=== PATIENT | male | born 1985 | race Caucasian/White ===

== ENCOUNTER 2017-09-17 15:23 | Inpatient (IN) ==
[2017-09-17 15:56] VITALS: BMI 30.2
[2017-09-17] MEDS ORDERED: MORPHINE SULFATE 2mg INJECTION IVP PRN (15:56)
[2017-09-17] MEDS ORDERED: ONDANSETRON 4 MG/2 ML INJECTION IVP PRN (15:56)
[2017-09-17] MEDS: LR 1,000 ML IV SCH ×3 (15:58→17:55)
--- NOTE | 2017-09-17 16:06 | Anesthesia Preoperative Report ---
Anesthesia Preoperative Record - Date and Time Date: 09/17/17 Preoperative Diagnosis: acute appendicitis Proposed Procedure: lap appy NPO Since Date: 09/17/17 NPO Since Time: 08:00 Allergies/Adverse Reactions: Allergies Allergy/AdvReac Type Severity Reaction Status Date / Time No Known Allergies Allergy Verified 09/17/17 15:43 - Vital Signs Vital Signs: Temperature 97.9 F 09/17/17 15:45 Pulse Rate 63 09/17/17 15:45 Respiratory Rate 16 09/17/17 15:45 Blood Pressure 119/63 09/17/17 15:45 Pulse Oximetry 98 09/17/17 15:45 Height and Weight: Height 1.93 m Weight 112.5 kg Body Mass Index 30.2 - Medications Inpatient Medications: Current Medications Ertapenem 1 g/ Sodium Chloride 100 mls @ 200 mls/hr IV PREOP ONE Stop: 09/18/17 16:16 Lactated Ringer's (Lactated Ringers) 1,000 mls @ 30 mls/hr IV .Q24H ALCIRA Last Admin: 09/17/17 15:58 Dose: 30 mls/hr Morphine Sulfate (Morphine Sulfate Inj) 1 - 4 mg IVP Q1H PRN PRN Reason: Pain Ondansetron HCl (Zofran) 4 mg IVP Q6H PRN PRN Reason: Nausea &/or vomiting Home Medications: Home Medications Medication Instructions Recorded Confirmed Type Ibuprofen [Motrin] 1 tab PO Q6H PRN 09/17/17 09/17/17 History - Medical History Respiratory: DENIES: Sleep Apnea - Social History Smoking Status: Never smoker - Pertinent Findings EKG: Sinus Rhythm - Physical Exam Respiratory Exam: Present: lungs clear, bilateral breath sounds equal Cardiovascular Exam: Present: regular rate and rhythm, no murmur - Airway Assessment Mallampati Score: I TMD: 3 Fingerbreadths Neck Extension: good Teeth: other (full lozoya ) - ASA ASA Score: 2, E - Plan Anesthesia: General Inhalation Gases - Discussion Discussion: Discussed risks/options/alternatives of anesthesia and questions answered. Patient consents. Nursing pain assessment noted. Attestation Statement: Prior to the delivery of any anesthetic medication, I examined the patient, developed the plan, obtained the patient's consent and discussed the risk and benefits of the procedure with the patient/guardian. - Additional Information Seen by Anesthesia: Yes
[2017-09-17] MEDS ORDERED: LIDOCAINE 4% Laryng-O-Jet (160mg/4mL) KIT MM ONE (16:13)
[2017-09-17] MEDS ORDERED: KETAMINE 500 MG/10 ML INJECTION ONE (16:13)
[2017-09-17] MEDS ORDERED: PROPOFOL 20 ML ONE ×2 (16:13→19:12)
[2017-09-17] MEDS ORDERED: FentaNYL 250 MCG/5 ML INJECTION ONE ×2 (16:13→19:12)
[2017-09-17] MEDS ORDERED: ROCURONIUM 50 MG/5 ML INJECTION IVP ONE (16:13)
[2017-09-17] MEDS ORDERED: BUPIVACAINE 0.25%/EPI 1:200,000 30ml SDV INFIL ONE (16:58)
[2017-09-17] MEDS ORDERED: INDOCYANINE GREEN 25mg INJECTION ONE (17:41)
[2017-09-17] MEDS ORDERED: METHYLENE BLUE ONE (18:24)
[2017-09-17] MEDS ORDERED: ONDANSETRON 4 MG/2 ML INJECTION ONE (19:12)
--- NOTE | 2017-09-17 19:17 | General Surgery Procedure Note ---
Date of Procedure: 09/17/17 Surgeon: [employer] Engineer: Sriram Varela APRN Postoperative Diagnosis: Acute ruptured appendicits with ileocecal mass affect Procedure: Attempted laparoscopic appendectomy with conversion to open laparotomy and limited right hemicolectomy Estimated Blood Loss: See Anesthesia Record.
[2017-09-17] MEDS ORDERED: INDOCYANINE GREEN 25mg INJECTION IVP ONE (19:42)
[2017-09-17] MEDS: HYDROMORPHONE 2 MG/ML INJECTION IVP PRN ×3 (20:01→22:33)
[2017-09-17] MEDS ORDERED: METOCLOPRAMIDE 10mg/2ml INJECTION IVP PRN (20:27)
[2017-09-17] MEDS ORDERED: LR 1,000 ML IV SCH (20:27)
[2017-09-17] MEDS ORDERED: MORPHINE PCA 30 MG/30 ML SYRINGE IV PRN (20:27)
[2017-09-17] MEDS ORDERED: NS 1,000 ML IV SCH (20:27)
[2017-09-17] MEDS: FentaNYL 100 MCG/2 ML INJECTION IVP PRN ×2 (20:38→21:59)
[2017-09-17] MEDS: KETOROLAC 30 MG/ML INJECTION IVP PRN (20:38)
--- NOTE | 2017-09-17 22:44 | General Surgery Progress Note ---
Subjective Narrative: Nursing called to report the Morphine [employer] and Fentanyl were not adequate for pain control. physical therapy supervisor was able to find several vials of Dilaudid that could be used. Dilaudid helped in PACU. Morphine and Fentanyl DC'd, prn Dilaudid ordered. - Vital Signs Last Vital Signs Temp 97.7 F 09/17/17 20:27 Pulse 67 09/17/17 22:00 Resp 21 09/17/17 22:00 BP 128/77 09/17/17 22:00 Pulse Ox 100 09/17/17 22:00 Hospital Course Summary Disclaimer: The visit summary below is not to be considered part of the above Progress Note.
[2017-09-18] MEDS: HYDROMORPHONE 2 MG/ML INJECTION IVP PRN ×8 (00:32→20:56)
[2017-09-18] MEDS: NS 1,000 ML IV SCH ×3 (01:26→18:22)
[2017-09-18] MEDS: KETOROLAC 30 MG/ML INJECTION IVP PRN ×3 (05:17→18:01)
[2017-09-18] MEDS: PANTOPRAZOLE 40 MG INJECTION IVP SCH (08:14)
[2017-09-18] MEDS: ENOXAPARIN 40 MG/0.4 ML INJECTION SQ SCH (08:14)
--- NOTE | 2017-09-18 08:46 | Operative Note ---
DATE OF SERVICE 09/17/2017 SURGEON Royer Kenny MD HEAD BAKER Sriram Varela APRN PREOPERATIVE DIAGNOSIS Abnormal CT scan revealing evidence for acute appendicitis with possible microperforation, severe right lower quadrant abdominal pain, probable appendicitis. POSTOPERATIVE DIAGNOSIS Abnormal CT scan revealing evidence for acute appendicitis with possible microperforation, severe right lower quadrant abdominal pain, probable appendicitis; phlegmonous mass involving cecum. PROCEDURE Attempted laparoscopic appendectomy with conversion to open laparotomy and a limited right hemicolectomy. ANESTHESIA General endotracheal. EBL AND FLUIDS Please see chart. BRIEF HISTORY/INDICATIONS Mr. Cabral is a 32-year-old gentleman who has somewhat of a unique history of a one to two month history of abdominal pain. The patient had recently been developing increasing pain and was seen earlier today by his primary care physician who obtained a CT scan for further evaluation. Upon CT scan findings were indicative of that of acute appendicitis with possible microperforation and severe surrounding inflammation. No abscess cavity was noted. Upon physical examination the patient was found to be exquisitely tender within the right lower quadrant. He did have a positive Rovsing's sign. I did contemplate proceeding with surgical intervention versus admitting the patient for intravenous antibiotics. I did come to the conclusion that secondary to his significant abdominal pain noted upon physical examination in conjunction with a CT scan revealing evidence for severe inflammation and possible microperforation that we would proceed with surgical intervention. For completeness please refer to notes included in the patient's chart. FINDINGS Upon laparoscopy, unfortunately, the patient was found to have a significant phlegmonous process involving the pericecal region. The appendix appeared to be retrocecal in nature. The appendix itself was difficult to even visualize given the significant inflammatory changes that were present. The white line of Toldt was incised along the right pericolic gutter and the colon was able to be reflected medially. Once this was accomplished, one could begin to see the tip of the appendix and a portion of the distal appendix. The proximal portion of the appendix, however, was not able to be visualized within this phlegmonous process. I could not mobilize the cecum to any greater extent laparoscopically and I elected therefore to proceed with conversion to open procedure. Upon laparotomy, liver edge was smooth without nodularities. Gallbladder was without palpable stones. Small bowel was run from the ligament of Treitz to terminal ileum without noted abnormalities. The colon was palpated throughout and was within normal limits with the exception of this phlegmonous process involving the cecum. The patient was found to have a hard discrete firm mass that was about 6 cm in greatest dimension. Given this finding, I elected to proceed with a limited right hemicolectomy and the terminal ileum was divided just proximal to the ileocecal valve. Mid ascending colon was also divided. A [id number] anastomosis was completed without incident between the terminal ileum and mid ascending colon. DESCRIPTION OF PROCEDURE After informed consent was obtained the patient was brought to the operative suite and placed on the table in supine fashion. The abdomen was then prepped and draped in sterile fashion. A formal time-out was then completed. 0.25% Marcaine with epinephrine was injected just beneath the level of the umbilicus. A 2 cm curved incision was then made through the area of analgesia. Dissection was carried down the deep subcutaneous tissues to underlying fascia. Fascia was then grasped with two Melonie clamps, retracted anteriorly. A 1 cm incision was made between the two Melonie clamps. A hemostat was then introduced into the fascial incision and gently spread. A U stitch was then placed with 0 Vicryl. A 12-mm camera port was then placed into the peritoneal cavity through this fascial opening. Additional 5 mm port was then placed in the suprapubic region as well as an additional 10/12 mm port within the right upper quadrant. Each port site was preinjected with 0.25% Marcaine with epinephrine and placed under direct visualization. The patient was placed in Trendelenburg position and rotated towards his left. Attention was then focused to the right lower quadrant. Upon visualization one could see a marked inflammatory mass involving the pericecal region. Upon palpation, utilizing a laparoscopic grasper, one could ascertain that there was a hard discrete mass involving the cecal region. As discussed above, the appendix was not able to be visualized. White line of Toldt was then incised along the right pericolic gutter and the colon was then began to be reflected medially. One could then see, with careful blunt dissection utilizing the suction tip catheter, the tip of the appendix within the retrocecal location. Attempt was made at dissecting the appendix away from the cecum and identifying the base of the appendix. This was to no avail given the marked inflammatory changes that were present. Therefore elected to proceed with conversion to an open procedure. Ports were removed and pneumoperitoneum was released. A standard midline incision was then made from just above the pubic symphysis up to and above the level of the umbilicus. Underlying subcutaneous tissues, fascia and peritoneum was opened to the extent of the incision. The abdominal cavity was explored with findings as noted above. Next, attention was then focused to the colon. White line of Toldt was then continued to be incised in a cephalad fashion up towards the hepatic flexure. Duodenum was identified as the colon was being reflected medially and the duodenum was gently swept posteriorly as the hepatic flexure was being mobilized. Hepatic flexure was then divided and the hepatic flexure was rotated medially and caudally. A few of the gastrocolic ligaments were divided just beyond the hepatic flexure resulting in complete mobilization of the hepatic flexure. At this point in time the right colon could be brought forth up into the incision and more carefully inspected. One could again see the tip of the appendix. I was unable to identify the base of the appendix as a result of this large phlegmonous process which was about 6-7 cm in diameter. Upon palpation the mass itself appeared to be involving the posterior aspect of the cecum and not intraluminal in nature as one would expect with a colonic malignancy. Given this phlegmonous process, I elected to go ahead and proceed with a limited right hemicolectomy. The mesentery was sequentially divided involving the terminal ileum as well as the proximal ascending colon. About 8 cm of mesentery was resected in continuity with the specimen. I did not, however, divide the right colic vessels at their origin. I did not dissect into the retroperitoneal space as a result of the inflammatory changes that were present. One could see the ureter beneath the peritoneum along the right lateral pelvic wall. Upon palpation, one could feel the ureter. The ureter was medial to the prior areas of dissection and out of the surgical field. The mesentery was divided as discussed above between right angle clamps and ligated with a combination of 3-0 and 0 Vicryl ties. Next, antimesenteric portion of the terminal ileum about 6 cm proximal to the ileocecal valve was then aligned along the midportion of the ascending colon proximal and distal to this phlegmonous process by placing a single interrupted suture of 3-0 Vicryl. The patient was then given ICG intravenously. Using fluorescence, I did assess the vascular status. Terminal ileum did fluoresce up to and beyond where the single interrupted suture was placed. The cecum where the mesentery had been divided did not fluoresce. Mid ascending colon at the location of the proposed anastomosis also fluoresced quite well indicative of adequate blood supply. Next, enterotomy and colotomy was then performed adjacent to the single interrupted suture. YOSEF 75 stapler was then placed within the enterotomy and colotomy and aligned along the antimesenteric border and fired. Next YOSEF 75 stapler was then reloaded and placed transversely excluding the prior enterotomy and colotomy and fired. The anastomosis was performed at the site where the vascular supply was found to be completely intact as discussed above. A few Lembert sutures were placed at the apex of the transverse staple line resulting in inversion of the distal staple line. A single interrupted suture was then placed at the apex of the staple line along the antimesenteric borders. Palpation revealed the anastomosis to be widely patent. I then had my digital assistant grasp the ascending colon distal to anastomosis. I then advanced small bowel contents into the anastomosis until the anastomosis was fairly taut with succus entericus material. One could not see any evidence of extravasation of small bowel contents through the staple line indicative that the staple line was completely intact. Next, prior areas of dissection were inspected and found be hemostatic in nature. Attention was then directed towards closure. Instrument, sponge and needle counts were performed and found to be correct. Fascia was then began to be closed with #1 PDS. The circulating nurse then stated that upon additional count that she was missing a lap pad. I then reopened the fascial closure a portion and after several minutes the circulating nurse then stated that she had found the additional missing lap pad and several lap counts and needle counts were performed once again and found to be correct. Attention was then directed back towards closure. The fascia was then continued be closed a running fashion with #1 PDS suture. New gowns, gloves and instruments were then obtained and attention was then directed towards closure. Subcutaneous tissues were irrigated with Betadine solution. Skin incisions were then imbricated with gera. The patient is in the process of awakening from his anesthetic and will be sent to the ICU once deemed in stable condition. Additionally, it should be noted that Sriram Varela APRN, was present throughout the entire case and played a pivotal role in providing assistance and exposure during the course of the procedure. MALINI
--- NOTE | 2017-09-18 10:32 | Progress Note ---
DATE 09/18/2017 FINDINGS Eliseo was seen this morning on rounds. He looked quite well considering he had a right hemicolectomy last evening. He was sitting up in the chair at the bedside and brushing his teeth. He did have a component of some incisional discomfort. Otherwise was without complaints. VITALS: Afebrile. Normotensive. Please refer to EMR. CHEST: Clear to auscultation bilaterally. HEART: Regular rate and rhythm. Normal S1 and S2 without gallops, murmurs or clicks. ABDOMEN: Palpation of the abdomen revealed it to be soft with, surprisingly, only minimal incisional tenderness present. No evidence for guarding or rebound. LABORATORY/RADIOGRAPH EVALUATION The patient had a CBC today and his white count was 17,000, most likely as a result of stress from surgery. Hemoglobin stable at 13.4. BMP obtained and found to be without marked abnormalities. ASSESSMENT 32-year-old gentleman status post attempted laparoscopic appendectomy with conversion to open procedure and subsequent limited right hemicolectomy secondary to phlegmonous mass involving pericecal region. Patient doing quite well. PLAN Will make some afternoon rounds and likely transfer patient out to floor later today. I'm quite pleased with the patient's appearance on postop day #1. MALINI
[2017-09-18] MEDS: ERTAPENEM 1 G in NS 100 ML IV SCH (10:44)
--- NOTE | 2017-09-18 12:40 | General Surgery Progress Note ---
Subjective Narrative: Better pain control with Dilaudid. Hope to transition to PO at some point. - Vital Signs Last Vital Signs Temp 97.9 F 09/18/17 04:00 Pulse 56 L 09/18/17 07:00 Resp 16 09/18/17 11:35 BP 102/62 09/18/17 07:00 Pulse Ox 98 09/18/17 11:35 - Laboratory Result Diagrams: 09/18/17 04:04 09/18/17 04:04 - Normal Exam General: awake, alert, oriented Respiratory: no labored breathing Assessment and Plan (1) Acute appendicitis with rupture Current Visit: Yes Status: Acute Plan: Continue ABX. IV pain control. Hospital Course Summary Disclaimer: The visit summary below is not to be considered part of the above Progress Note.
[2017-09-18] MEDS ORDERED: ERTAPENEM 1 G in NS 100 ML IV ONE (15:47)
[2017-09-18] MEDS: HYDROCODONE/APAP 5mg/325mg TABLET PO PRN (17:50)
[2017-09-19] MEDS: HYDROMORPHONE 2 MG/ML INJECTION IVP PRN ×6 (00:06→15:08)
[2017-09-19] MEDS: NS 1,000 ML IV SCH ×3 (02:53→20:28)
[2017-09-19] MEDS: PANTOPRAZOLE 40 MG INJECTION IVP SCH (08:40)
[2017-09-19] MEDS: ERTAPENEM 1 G in NS 100 ML IV SCH (08:40)
[2017-09-19] MEDS: ENOXAPARIN 40 MG/0.4 ML INJECTION SQ SCH (08:53)
[2017-09-19] MEDS ORDERED: MAG-AL + SIM ORAL LIQUID 30ml PO PRN (11:01)
--- NOTE | 2017-09-19 11:07 | General Surgery Progress Note ---
Subjective Patient reports: still having pain (asking for Dilaudid every 3-4 hours, states morphine and fentanyl are not helpful. Also using Toradol.), no flatus, no bowel movement Narrative: States broth causes epigastric pain, denies actual nausea. - Vital Signs Last Vital Signs Temp 97.5 F 09/19/17 07:49 Pulse 80 09/19/17 07:49 Resp 16 09/19/17 07:49 BP 117/65 09/19/17 07:49 Pulse Ox 95 09/19/17 07:49 - Laboratory Result Diagrams: 09/19/17 03:52 09/19/17 03:52 - Pathology Pending - Abnormal Exam Abdominal: hypoactive bowel sounds, firm - Normal Exam General: awake, alert, oriented Cardiovascular: regular rhythm, regular rate Respiratory: clear bilaterally, no labored breathing Abdominal: incision(s) (gera present, dressing not removed today) Male: other (Juares, clear yellow urine, output good) Psychiatric: normal affect Assessment and Plan (1) Status post right colon removal Current Visit: Yes Status: Acute Problem details: limited right hemicolectomy (2) Acute appendicitis with rupture Current Visit: Yes Status: Acute Plan: POD #2 Pain is improving just a little, Dilaudid seems to be the only thing that helps at this point. Will order Abd Binder. Urine output great, DC Juares. Clears cause epigastric pain, will order fulls and Maalox (already on Protonix IV), better consistency may help. Continue Invanz for ruptured walled off acute appendicitis with cecal mass like effect. Hospital Course Summary Disclaimer: The visit summary below is not to be considered part of the above Progress Note.
--- NOTE | 2017-09-19 17:56 | Progress Note ---
DATE OF SERVICE 09/19/2017 FINDINGS Mr. Cabral was seen on evening rounds. He states that he is doing fairly well with the exception of trying to eat. The patient states that after he eats his "belly knots up." The patient does complain of a moderate amount of discomfort after eating. He denies specifically, however, nausea or vomiting. He does state that his abdomen feels somewhat bloated upon questioning. PHYSICAL EXAM Afebrile, normotensive. Please refer to EMR. ABDOMEN: Soft, minimal incisional tenderness present. No evidence for guarding or rebound. LABORATORY/RADIOGRAPHIC EVALUATION The patient had a CBC today and his white count is down to 7.4. Hemoglobin is stable at 11.5. BMP obtained and found to be without marked abnormalities. ASSESSMENT 32-year-old gentleman status post exploratory laparotomy with resection of phlegmonous mass involving pericecal region. Patient overall doing well. PLAN Will continue with current care. Will keep on full liquids given his ongoing abdominal pain with eating and abdominal bloating. Will try to use some Reglan to see if this would result in any improvement. Will continue to follow the patient closely. MALINI
[2017-09-19] MEDS: KETOROLAC 30 MG/ML INJECTION IVP PRN (20:41)
[2017-09-20] MEDS: NS 1,000 ML IV SCH ×4 (01:46→23:15)
[2017-09-20] MEDS: KETOROLAC 30 MG/ML INJECTION IVP PRN (06:00)
[2017-09-20] MEDS: ERTAPENEM 1 G in NS 100 ML IV SCH (08:40)
[2017-09-20] MEDS: PANTOPRAZOLE 40 MG INJECTION IVP SCH (08:40)
[2017-09-20] MEDS: ENOXAPARIN 40 MG/0.4 ML INJECTION SQ SCH (08:40)
--- NOTE | 2017-09-20 14:16 | Progress Note ---
DATE 09/20/2017 FINDINGS Mr. Cabral today was without complaints. He states he still is experiencing some discomfort after eating. This is improved. He states he did have several bowel movements today. OBJECTIVE VITALS: Afebrile. Normotensive. Please refer to EMR. ABDOMEN: Soft, nontender. Incision is clean, dry and intact. LABORATORY/RADIOGRAPHIC EVALUATION Patient had a CBC today that was unremarkable. Hemoglobin 11.5. White count stable at 85.1. BMP obtained and found to be without marked abnormalities. ASSESSMENT 32-year-old gentleman status post right hemicolectomy secondary to phlegmonous mass involving pericecal region. Pathology still pending. Patient doing well and progressing. PLAN Will go ahead and advance to regular diet. Will decrease his IV fluids. The patient will likely be able to be discharged tomorrow if he continues on this current course. MALINI
[2017-09-20] MEDS: HYDROCODONE/APAP 5mg/325mg TABLET PO PRN ×3 (14:20→23:15)
[2017-09-20 23:20] VITALS: O2SAT 96
[2017-09-21] MEDS: HYDROCODONE/APAP 5mg/325mg TABLET PO PRN (07:12)
[2017-09-21 07:47] VITALS: BP 134/76; PULSE 71; RESP 16; TEMP 98.1
[2017-09-21] MEDS: ENOXAPARIN 40 MG/0.4 ML INJECTION SQ SCH (08:10)
[2017-09-21] MEDS: NS 1,000 ML IV SCH ×2 (08:12→10:35)
[2017-09-21] MEDS: PANTOPRAZOLE 40 MG INJECTION IVP SCH (08:12)
[2017-09-21] MEDS: ERTAPENEM 1 G in NS 100 ML IV SCH (09:19)
--- NOTE | 2017-09-21 10:55 | Progress Note ---
DATE OF SERVICE 09/21/2017 FINDINGS The patient was seen this morning on rounds. He states that he is eating better. He did have some abdominal cramping last evening after eating but today states that he is doing better. EXAM VITAL SIGNS: Afebrile, normotensive. ABDOMEN: Soft, nontender. Incision is clean, dry, and intact. ASSESSMENT 32-year-old gentleman status post limited right hemicolectomy secondary to phlegmonous mass involving pericecal region secondary to appendicitis. Patient doing well. PLAN Discharge to home. Please refer to discharge instructions if detail needed. [id number]
--- NOTE | 2017-09-23 07:44 | Discharge Summary ---
Discharge Information Date of admission: 09/17/17 20:27 Attending Physician: Royer Kenny MD Primary care physician: Paul Clayton MD - Discharge Diagnosis (1) Status post right colon removal Status: Acute (2) Acute appendicitis with rupture Status: Acute - Procedures Procedures: DATE OF SERVICE 09/17/2017 SURGEON Royer Kenny MD CRIMINAL JUDGE Sriram Varela APRN PREOPERATIVE DIAGNOSIS Abnormal CT scan revealing evidence for acute appendicitis with possible microperforation, severe right lower quadrant abdominal pain, probable appendicitis. POSTOPERATIVE DIAGNOSIS Abnormal CT scan revealing evidence for acute appendicitis with possible microperforation, severe right lower quadrant abdominal pain, probable appendicitis; phlegmonous mass involving cecum. PROCEDURE Attempted laparoscopic appendectomy with conversion to open laparotomy and a limited right hemicolectomy. - Laboratory Labs: 09/21/17 04:07 09/21/17 04:07 - Radiology Radiology: CT abd/pelvis, acute appendicitis - Pathology terminal ileum and partial right colon: Acute ruptured appendicitis, 7 benign lymph nodes, no malignancy - History of Present Illness HPI: BRIEF HISTORY/INDICATIONS Mr. Cabral is a 32-year-old gentleman who has somewhat of a unique history of a one to two month history of abdominal pain. The patient had recently been developing increasing pain and was seen earlier today by his primary care physician who obtained a CT scan for further evaluation. Upon CT scan findings were indicative of that of acute appendicitis with possible microperforation and severe surrounding inflammation. No abscess cavity was noted. Upon physical examination the patient was found to be exquisitely tender within the right lower quadrant. He did have a positive Rovsing's sign. I did contemplate proceeding with surgical intervention versus admitting the patient for intravenous antibiotics. I did come to the conclusion that secondary to his significant abdominal pain noted upon physical examination in conjunction with a CT scan revealing evidence for severe inflammation and possible microperforation that we would proceed with surgical intervention. Hospital Course This is a general summary of the patient's hospital course. For more details refer to the complete medical record. Hospital course: 09/17 Admitted for lap appy, which was converted to open limited right hemicolectomy, see operative note for details. Transferred to CCU post op. 09/18 Pain not controlled with Morphine, switched to Dilaudid. VSS, transferred to surgical floor. 09/19 POD #2 Pain is improving just a little, Dilaudid seems to be the only thing that helps at this point. Will order Abd Binder. Urine output great, DC Juares. Clears cause epigastric pain, will order fulls and Maalox (already on Protonix IV), better consistency may help. Continue Invanz for ruptured walled off acute appendicitis with cecal mass like effect. 09/20 PLAN Will go ahead and advance to regular diet. Will decrease his IV fluids. The patient will likely be able to be discharged tomorrow if he continues on this current course. 09/21 PLAN Discharge to home. Resuscitation Status: Full Code Discharge Plan - Med Rec/Dispo Referrals/Follow Up: Royer Kenny MD [Physician] - 10/04/17 1:45 pm [place] Instructions: Colectomy (DC), Open Appendectomy (DC) Prescriptions: New Hydrocodone/APAP 5/325 [[place] 5/325] 1 - 2 tab PO Q5H PRN #30 tab PRN Reason: Pain Ondansetron [Zofran Odt] 1 tab SL Q6HR PRN #10 tab PRN Reason: Nausea Amoxicillin/Potassium Clav [Augmentin 875-125 Tablet] 1 each PO BID #10 tab Continue Ibuprofen [Motrin] 1 tab PO Q6H PRN PRN Reason: Pain No Action Magnesium Citrate 296 ml PO PRN PRN PRN Reason: Constipation - Disposition 01 Discharged Home, Self-Care - Dismissal Complete Discharge Instructions are:: Complete
== END 2017-09-21 10:50 | disposition home or self-care (01) | DRG 331 ==
LOC: SUR 15:23 → NMC.PERIOP 15:25 → CCU 20:22 → SRG 09-18 18:54
PROVIDERS: ADMIT Surgery; ATTEND Surgery

== ENCOUNTER 2017-09-22 18:13 | Inpatient (IN) ==
[2017-09-22] MEDS ORDERED: SALINE FLUSH 10ml SYRINGE IVF PRN (18:15)
[2017-09-22] MEDS ORDERED: KETOROLAC 30 MG/ML INJECTION IVP ONE (18:17)
[2017-09-22] MEDS ORDERED: PROCHLORPERAZINE 10 MG/2 ML INJECTION IVP ONE (18:17)
[2017-09-22] MEDS ORDERED: FentaNYL 100 MCG/2 ML INJECTION IVP ONE (18:17)
[2017-09-22] MEDS ORDERED: NS 1,000 ML IV ONE (18:19)
--- NOTE | 2017-09-22 18:24 | Emergency Department Report ---
Abdominal Pain HPI - General Chief Complaint: Abdominal Pain Stated Complaint: constipation Time Seen by Provider: 09/22/17 18:14 Source: patient Mode of arrival: ambulatory Limitations: no limitations - History of Present Illness HPI narrative: Patient presents in with worsening abdominal pain, still having the inability to have bowel movements despite multiple therapy interventions today. Currently the patient's pain is global, focused most in the epigastrium and left upper quadrant. Patient has already been seen twice today in the ER, and has not actually left the hospital facility, because he feels like he has not had adequate pain control, nor has he been able to achieve bowel movement. In review of the patient's hospital record, it was noted that the patient required high doses and frequent dosing of narcotic pain medication after surgery. Patient states that he has a high pain tolerance, however after surgery the patient seems to be having significant difficulty controlling his pain. 3 days ago the patient had a very complex appendectomy with partial colectomy and removal of the colon mass, noncancerous. Since that time the patient has had no bowel movements, and has had increasingly worsening abdominal pain. Patient has a prescription for [place] at home, that does not seem to be helping with the pain. He was seen twice earlier today, given doses of morphine and Zofran, with little relief. Patient has also tried Dulcolax suppositories, magnesium citrate which she vomited immediately after taking, and 2 fleets enemas with very little relief. X-rays done today showed essentially stool filled colon with no other abnormalities. - Related Data Home Medications Medication Instructions Recorded Confirmed Ibuprofen [Motrin] 1 tab PO Q6H PRN 09/17/17 09/22/17 Magnesium Citrate 296 ml PO PRN PRN 09/22/17 09/22/17 Previous Rx's Medication Instructions Recorded Amoxicillin/Potassium Clav 1 each PO BID #10 tab 09/20/17 [Augmentin 875-125 Tablet] Hydrocodone/APAP 5/325 [[place] 1 - 2 tab PO Q5H PRN #30 tab 09/20/17 5/325] Ondansetron [Zofran Odt] 1 tab SL Q6HR PRN #10 tab 09/20/17 Allergies Allergy/AdvReac Type Severity Reaction Status Date / Time No Known Allergies Allergy Verified 09/17/17 15:43 Review of Systems All systems: reviewed and negative except as stated PFSH Patient Stated Medical History Sleep Apnea No Clinic Medical History (Last Updated 09/17/17 @ 11:47 by Nory Varela APRN) No chronic problems (Acute Medical) Family History: Family History (Last Updated 09/17/17 @ 11:48 by Nory Varela APRN) Mother Rheumatoid arthritis Father Healthy adult Appendectomy, noncancerous colonic mass removal, partial colectomy - Social History Smoking status: Never smoker Physical Exam - Limitations Limitations: no limitations - General General appearance: alert, in distress (patient appears in moderate pain, is unable to find a position of comfort.First to stand) - Normal Exams: Head:: Normocephalic without trauma Eyes:: Pupils are PERRLA w/ EOMI, No scleral icterus, irritation, or foreign bodies noted ENMT:: No facial trauma, nasal exudates, pharyngeal erythema, or exudates are noted Neck:: Full range of motion, without adenopathy, JVD, bruits or thyromegaly Chest/Respirations:: Clear all bradshaw, with good airflow, and symmetry bilaterally Cardiovascular:: Regular rate and rhythm, without murmur or gallop, Pulses 2+ all extremities, capillary refill, <2 seconds all extremities Lymphatic:: No lymphadenopathy, or lymphedema noted Musculoskeletal:: No tenderness, or deformity noted, good range of motion, all extremities Integumentary:: No rashes, hives, or bruising noted, hair and nails, without abnormality Neurological:: Patient is alert, and oriented, cranial nerves, motor/sensory/ cerebellar, exams w/o gross deficits, to observation Psychiatric:: Patient exhibits, appropriate attention, emotion and affect - Abdominal Exam Abdominal exam: Present: soft, tenderness (patient has significant tenderness in the epigastrium, periumbilical region, and both sides of the abdomen. Palpation produces significant increased pain, and patient seems to guard the entire abdomen.), guarding, rebound, diminished bowel sounds. Absent: distention, rigidity, trauma, psoas sign, obturator sign, Sanchez's sign, Rovsing 's sign, tenderness at McBurney's Point, mass, bruit, pulsatile mass, hernia Abdominal Pain - MDM Narrative Medical decision making narrative: Patient did receive significant improvement after Dilaudid, but due to significant hospital shortages this is not an option for further pain management at this time. Patient is given Toradol 30 mg, fentanyl 100 g, and Compazine 10 mg IV - with complete control of the patient's symptoms CBC and CMP/L done earlier were normal CT abdomen pelvis with contrast - status post appendectomy without significant or drainable abscess. Scan did show multiple dilated fluid-filled thick walled small bowel loops in association with mesenteric ischemia suggestive of nonspecific enteritis with extensive ileus. No definite obstruction is seen at this time. Case is discussed with Dr. Kenny, we will admit observation for IV fluids, bowel rest, and medications as outlined above. Disposition Clinical Impression: Postoperative ileus Abdominal pain Qualifiers: Abdominal location: periumbilical Qualified Code(s): R10.33 - Periumbilical pain Disposition: 02 To [facility] Condition: Improved Prescriptions: No Action Hydrocodone/APAP 5/325 [[place] 5/325] 1 - 2 tab PO Q5H PRN #30 tab PRN Reason: Pain Ondansetron [Zofran Odt] 1 tab SL Q6HR PRN #10 tab PRN Reason: Nausea Magnesium Citrate 296 ml PO PRN PRN PRN Reason: Constipation Ibuprofen [Motrin] 1 tab PO Q6H PRN PRN Reason: Pain Amoxicillin/Potassium Clav [Augmentin 875-125 Tablet] 1 each PO BID #10 tab Referrals: Paul Clayton MD [Family Provider] - - Seen By: physician
[2017-09-22] MEDS ORDERED: SALINE FLUSH 10ml SYRINGE ONE (18:33)
[2017-09-22] MEDS ORDERED: IOHEXOL 300mg/ml 75ml INJECTION ONE (18:33)
[2017-09-22] MEDS: NS 1,000 ML IV SCH (20:26)
[2017-09-22] MEDS: KETOROLAC 30 MG/ML INJECTION IVP SCH (23:38)
[2017-09-22] MEDS: PROCHLORPERAZINE 10 MG/2 ML INJECTION IVP SCH (23:39)
[2017-09-23] MEDS: KETOROLAC 30 MG/ML INJECTION IVP SCH ×2 (03:13→08:55)
[2017-09-23] MEDS: FentaNYL 100 MCG/2 ML INJECTION IVP PRN ×2 (03:47→07:33)
[2017-09-23] MEDS: NS 1,000 ML IV SCH ×5 (04:50→22:24)
[2017-09-23] MEDS: PROCHLORPERAZINE 10 MG/2 ML INJECTION IVP SCH (05:15)
--- NOTE | 2017-09-23 08:23 | General Surg History&Physical ---
- History of Present Illness Chief complaint: Abd pain PFSH Patient Stated Medical History Denies chronic health problems Surgical History: Limited right hemicolected for walled off ruptured appendix Family History: Family History (Last Updated 09/17/17 @ 11:48 by Nory Varela, DORCAS) Mother Rheumatoid arthritis Father Healthy adult - Social History Smoking status: Never smoker Substance use type: does not use Housing: house Household members: spouse Medications Home Medications Medication Instructions Recorded Confirmed Type Ibuprofen [Motrin] 1 tab PO Q6H PRN 09/17/17 09/22/17 History Amoxicillin/Potassium Clav 1 each PO BID #10 tab 09/20/17 09/22/17 Rx [Augmentin 875-125 Tablet] Hydrocodone/APAP 5/325 [[place] 1 - 2 tab PO Q5H PRN #30 tab 09/20/17 09/22/17 Rx 5/325] Ondansetron [Zofran Odt] 1 tab SL Q6HR PRN #10 tab 09/20/17 09/22/17 Rx Magnesium Citrate 296 ml PO PRN PRN 09/22/17 09/22/17 History Allergies Allergy/AdvReac Type Severity Reaction Status Date / Time No Known Allergies Allergy Verified 09/17/17 15:43 Review of Systems 10-point ROS: negative except for HPI - Vital Signs Last Vital Signs Temp 96.0 F L 09/23/17 07:00 Pulse 84 09/23/17 07:00 Resp 16 09/23/17 07:00 BP 143/90 H 09/23/17 07:00 Pulse Ox 95 09/23/17 07:00 Hospital Course Summary Disclaimer: The visit summary below is not to be considered part of the above Progress Note.
--- NOTE | 2017-09-23 08:26 | General Surgery Progress Note ---
Subjective Patient reports: voiding w/o difficulty (although states smaller amounts.), no flatus, no bowel movement Narrative: States he feels bloated, denies actual nausea. [place] like he might have a BM earlier, but by the time he got to the bathroom "the urge had pased." Denies chest pain, SOA. - Vital Signs Last Vital Signs Temp 96.0 F L 09/23/17 07:00 Pulse 84 09/23/17 07:00 Resp 16 09/23/17 07:00 BP 143/90 H 09/23/17 07:00 Pulse Ox 95 09/23/17 07:00 - Abnormal Exam Abdominal: hypoactive bowel sounds (almost abscent), distended - Normal Exam General: awake, alert, oriented, no acute distress Cardiovascular: regular rate Respiratory: clear bilaterally, no labored breathing Abdominal: appropriately tender (midline), non-tender (lateral palpation), incision(s) (midline gera in tact, no erythema) Psychiatric: normal affect Assessment and Plan (1) Postoperative ileus Current Visit: Yes Status: Acute (2) Status post right colon removal Current Visit: No Status: Acute Problem details: limited right hemicolectomy Plan: X-ray and labs ordered, will await those results. encouraged ambulation, will keep NPO for now. Hospital Course Summary Disclaimer: The visit summary below is not to be considered part of the above Progress Note.
--- NOTE | 2017-09-23 08:39 | CT Scan Report ---
EXAM: CT abdomen pelvis w con DATE: 09/22/2017 12:00 AM ENCOUNTER: Initial INDICATION: left abd pain post appy/partial colectomy approximately four days prior COMPARISON: 09/17/2017 TECHNIQUE: CT of the abdomen and pelvis with IV contrast. The patient received 70.2 mL of Omnipaque 300 without complication. Coronal and sagittal reformatted images were performed. The current CT scan was performed using radiation dose-reduction techniques. FINDINGS: Lower Chest: The visualized portions of the lower lungs demonstrate mild dependent atelectasis. The heart is normal in size without pericardial effusion. Abdomen: Scattered foci of intraperitoneal free air and mild free fluid within the right abdomen. No focal rim-enhancing fluid collections. No lymphadenopathy. Liver: The liver enhances homogeneously without focal masses. Gallbladder and biliary: The gallbladder appears normal. No biliary ductal dilatation. Spleen: The spleen appears normal. Pancreas: The pancreas demonstrates homogeneous attenuation. Adrenal glands: The adrenal glands are normal in size and attenuation. Kidneys/ureters: The kidneys appear normal. The ureters are normal in course and caliber. GI tract: The stomach appears grossly normal. Dilated fluid-filled small bowel loops. The colon appears grossly normal. The appendix is surgically absent. Vascular structures: The aorta is normal in course and caliber. The mesenteric arterial and venous structures appear patent. Pelvis: Mild pelvic free fluid. No pelvic lymphadenopathy. Bladder: The bladder appears normal. Genital system: The prostate and seminal vesicles appear grossly normal. Skeletal structures and soft tissues: The visualized skeletal structures are grossly normal. IMPRESSION: 1. Interval postoperative changes of appendectomy with likely associated mild free fluid and free air within the right abdomen and pelvis. No focal rim-enhancing fluid collection to suggest drainable abscess. 2. Multiple dilated fluid-filled small bowel loops potentially related to postoperative adynamic ileus, reactive ileus, or enteritis. The above report concurs with the preliminary report provided by [facility] at 7:35 PM. .
--- NOTE | 2017-09-23 09:02 | XRay Report ---
EXAM: XR abdomen 2V DATE: 09/23/2017 8:07 AM Encounter: Subsequent INDICATION: ileus vs small bowel obstruction COMPARISON: Abdominal CT and acute abdominal series of the previous day Technique: Upright and supine AP abdominal radiographs were obtained. Findings: Midline surgical skin gera noted. Right lower quadrant surgical chain gera consistent with recent appendectomy. Non-obstructive bowel gas pattern. A few nonspecific air-fluid levels are seen on the upright radiograph. Paucity of colonic gas and stool. No intraperitoneal free air appreciated radiographically. No acute osseous abnormality identified. The visualized lung bases appear clear. Impression: Bowel gas pattern appears nonobstructive radiographically. .
[2017-09-23] MEDS ORDERED: MORPHINE SULFATE 4mg INJECTION IVP PRN (09:45)
[2017-09-23] MEDS ORDERED: DiphenhydrAMINE 50 MG/ML INJECTION IVP ONE (10:20)
[2017-09-23] MEDS: AZITHROMYCIN IV 250 MG in NS 100 ML IV SCH (10:24)
[2017-09-23] MEDS ORDERED: PROCHLORPERAZINE 10 MG/2 ML INJECTION IVP SCH (11:45)
[2017-09-23] MEDS ORDERED: PROCHLORPERAZINE 10 MG/2 ML INJECTION IVP PRN (12:05)
[2017-09-23] MEDS ORDERED: SORE THROAT SPRAY 20ml PO PRN (12:05)
--- NOTE | 2017-09-23 12:43 | History and Physical ---
FINDINGS Mr. Cabral is a 32-year-old gentleman who was readmitted last evening through our emergency room facility as a result of an abnormal CT scan revealing evidence for an ileus. Last week Mr. Cabral underwent an attempted laparoscopic appendectomy secondary to his physical findings of localized right lower quadrant abdominal pain in conjunction with a CT scan revealing evidence for acute appendicitis with possible small perforation. At the time of surgery the patient was found to have a phlegmonous mass involving his pericecal region. He subsequently underwent a limited right hemicolectomy with resection of this phlegmonous mass. Fortunately, pathology did not return revealing any evidence for malignancy. On Saturday of last weekend the patient was tolerating a regular diet and was discharged to home. Unfortunately, the patient then began to develop some increasing abdominal discomfort yesterday, on Saturday. He presented to the emergency room earlier in the day and no significant abnormal radiographic or laboratory results were noted. The patient did not feel well, however, and stayed around the hospital for several hours after his dismissal from the ER. He then began to develop increasing abdominal pain and re-presented to the emergency room, at which time a CT scan was obtained that did reveal some dilatation of the small bowel suggestive of small bowel obstruction. Given his ongoing symptomatology and radiographic findings, the patient was admitted for further evaluation. This morning when I entered his room the patient was sleeping comfortably. The patient stated at the time of my entry into the room he was having no pain. Earlier this morning , however, he stated that he was having some crampy intermittent discomfort that was alleviated after receiving some Toradol. He currently denies any element of nausea. He has had no vomiting per his report. PHYSICAL EXAMINATION GENERAL: The patient is a 32-year-old gentleman who did not appear to be in acute distress. VITALS: The patient has been afebrile and not tachycardic since admission. Current vitals include temperature 96.0, pulse 84, respirations 16, blood pressure 143/90, SaO2 95% room air. HEENT: Normocephalic. Pupils are equal, round and reactive to light and accommodation. NECK: Supple without lymphadenopathy. CHEST: Clear to auscultation bilaterally. HEART: Regular rate and rhythm. Normal S1 and S2 without gallops, murmurs or clicks. ABDOMEN: Visualization of the abdomen reveals his midline incision to be healing without difficulty. Palpation within the lower quadrant and left lower quadrant did not elicit any tenderness to the patient today. There was no element of guarding or rebound. EXTREMITIES: Without clubbing, cyanosis, or edema. NEURO: Cranial nerves II-XII grossly intact. Patient is without focal motor or sensory deficits. LABORATORY/RADIOGRAPH EVALUATION The patient had a CBC today and his white count is slightly elevated at 11.6. Hemoglobin is 13.4. BMP was obtained and found to be without marked abnormalities. Radiographically, the patient did undergo a plain film today as well as a CT scan last evening. Abdominal series today did not reveal any evidence for an obstructive pattern. There were a few nonspecific air-fluid levels seen on the upright radiograph. There was not much in way, however, of gas noted within the colon. There was no intraperitoneal air appreciated radiographically. A CT scan was performed last evening. CT scan did reveal some dilatation of the small bowel suggestive of ileus. There was some minimal amount of mild free fluid and free air within the right abdomen and pelvis indicative of his recent exploratory laparotomy. There was no evidence for a focal rim enhancing fluid collection to suggest an abscess. ASSESSMENT 32-year-old gentleman status post exploratory laparotomy with resection of a phlegmonous mass involving pericecal region secondary to retrocecal appendicitis. Patient with the development of a probable postoperative ileus. Patient is without an acute surgical abdomen. PLAN I informed the patient that I did not feel that we were dealing with an acute surgical process/emergency such as an anastomotic leak. He does not have any peritoneal signs. Radiographically, it appears that he has that of an ileus. Will continue with current care. Will go ahead and increase IV fluids, begin promotility agent utilizing Reglan and IV erythromycin or its substitute if needed. Will continue to follow the patient with serial abdominal examinations. Repeat CBC tomorrow as well as repeat radiographic evaluation tomorrow. [facility]
--- NOTE | 2017-09-23 12:56 | XRay Report ---
EXAM: XR abdomen 1V DATE: 09/23/2017 12:00 AM Encounter: Subsequent INDICATION: PLACEMENT OF NG TUBE COMPARISON: Prior abdominal radiographs of the same day Technique: A single portable supine AP abdominal radiographs was obtained. Findings: Placement of an enteric tube which courses into the fundus of the stomach. Non-obstructive visualized bowel gas pattern. Paucity of colonic gas and stool. No obvious intraperitoneal free air, although sensitivity is limited with supine radiography. Midline surgical skin gera again noted. No acute osseous abnormality identified. The visualized lung bases appear clear. Impression: Placement of an enteric tube which courses into the fundus of the stomach. .
[2017-09-23] MEDS ORDERED: KETOROLAC 30 MG/ML INJECTION IVP PRN (13:57)
[2017-09-23] MEDS ORDERED: METOCLOPRAMIDE 10 MG/2 ML IVP SCH (15:00)
[2017-09-24] MEDS: NS 1,000 ML IV SCH ×4 (05:15→23:52)
[2017-09-24 08:30] VITALS: BMI 28.8
--- NOTE | 2017-09-24 08:37 | XRay Report ---
Indication: ileus PROCEDURE: XR abdomen 2V: Encounter: Initial Comparison: September 23, 2017 Findings: Nasogastric tube tip is now directed distally in the region of the pylorus. No free air identified. Minimal bowel gas visible. No abnormally dilated gas-filled bowel loops appreciated. Bony structures are unremarkable. Impression: Relatively gasless abdomen probably representing fluid-filled bowel loops. .
[2017-09-24] MEDS: AZITHROMYCIN IV 250 MG in NS 100 ML IV SCH (09:19)
--- NOTE | 2017-09-24 09:26 | General Surgery Progress Note ---
Subjective Patient reports: feels better, pain is less Narrative: Patient reports 3 or 4 small liquid stools during the evening and night last night. He states he's been rather generous with the ice chips and wonders about the right. NG remains in place and ice chips would be fine. Voiding without difficulty. Denies pain with lateral palpation. States he's having minimal abdominal incisional pain but is more concerned about continued "tightness and bloating." - Vital Signs Last Vital Signs Temp 98.6 F 09/24/17 08:00 Pulse 83 09/24/17 08:00 Resp 16 09/24/17 08:00 BP 126/75 09/24/17 08:00 Pulse Ox 95 09/24/17 08:00 - Laboratory Result Diagrams: 09/24/17 04:16 09/23/17 08:27 - Radiology 09/24 flat KUB (without upright) Findings: Nasogastric tube tip is now directed distally in the region of the pylorus. No free air identified. Minimal bowel gas visible. No abnormally dilated gas-filled bowel loops appreciated. Bony structures are unremarkable. Impression: Relatively gasless abdomen probably representing fluid-filled bowel loops. - Abnormal Exam Abdominal: hypoactive bowel sounds (pretty much absent, only a very rare bowel sounds), firm, distended (slightly) - Normal Exam General: awake, alert, oriented Respiratory: clear bilaterally, no labored breathing Abdominal: appropriately tender (midline), non-tender (lateral palpation), incision(s) (gera intact, no erythema or ecchymosis.) Psychiatric: normal affect Assessment and Plan (1) Postoperative ileus Current Visit: Yes Status: Acute (2) Status post right colon removal Current Visit: No Status: Acute Problem details: limited right hemicolectomy Plan: Azithromycin IV daily was initiated yesterday, he's had a few small liquid stools. NG should remain in place. He may have ice chips as any fluid will be suctioned out. Continue current care. Hospital Course Summary Disclaimer: The visit summary below is not to be considered part of the above Progress Note.
--- NOTE | 2017-09-24 17:03 | Progress Note ---
DATE 09/24/2017 FINDINGS Eliseo was seen this morning on rounds. He states he has not been experiencing significant abdominal pain or discomfort. He still feels somewhat "bloated". He did have several small bowel movements yesterday per his report. OBJECTIVE VITALS: Afebrile. Normotensive. Last recorded vitals include temperature 98.6 , pulse 83, respirations 16, blood pressure 126/75. CHEST: Clear to auscultation bilaterally. HEART: Regular rate and rhythm. Normal S1, S2, without gallops, murmurs or clicks. ABDOMEN: Visualization of the abdomen does reveal it to still be somewhat distended in nature. Palpation of the abdomen however revealed it to be soft and completely nontender throughout. No evidence for guarding or rebound. LABORATORY/RADIOGRAPHIC EVALUATION The patient had a CBC today and his white count is diminished at 8.5. Hemoglobin is stable at 12.3. Radiographically, the patient had a KUB and upright obtained today. There was a paucity of air noted within the small bowel and colon. Radiology felt this was likely secondary to air-fluid bowel loops. 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 Patient with misfortune of developing postoperative ileus. The patient remains clinically stable. PLAN Will go ahead today and continue with NG suction and IV fluids and serial abdominal examinations. Will repeat lab tomorrow and radiographic evaluation. The patient still has a fair amount of output per his NG. Perhaps tomorrow we may obtain a Gastrografin small bowel follow-through to see if the contrast does progress through his GI tract. MALINI
--- NOTE | 2017-09-25 07:58 | General Surgery Progress Note ---
Subjective Patient reports: feels better, no flatus, bowel movement (states very small, but a little more formed than just liquid) Narrative: States feeling less bloated, and is softer, denies nausea. He went for a walk about 3am and had a small loose BM after the walk. He feels "rumblings" in the abd at times. - Vital Signs Last Vital Signs Temp 98.7 F 09/25/17 07:37 Pulse 78 09/25/17 07:37 Resp 14 09/25/17 07:37 BP 117/66 09/25/17 07:37 Pulse Ox 97 09/25/17 07:37 - Laboratory Result Diagrams: 09/25/17 04:07 09/23/17 08:27 - Radiology KUB upright from this am pending - Normal Exam General: awake, alert, oriented Respiratory: clear bilaterally, no labored breathing Abdominal: BS normo active x4 (gurgling), soft, appropriately tender (midline), non-tender (lateral palpation), incision(s) (gera in tact, no erythema) Psychiatric: normal affect Assessment and Plan (1) Postoperative ileus Current Visit: Yes Status: Acute (2) Status post right colon removal Current Visit: No Status: Acute Problem details: limited right hemicolectomy Plan: Bowels seem to be starting to wake up. Await radiology report and Dr. Kenny's recommendations. Hospital Course Summary Disclaimer: The visit summary below is not to be considered part of the above Progress Note.
[2017-09-25] MEDS: NS 1,000 ML IV SCH ×4 (08:31→23:13)
--- NOTE | 2017-09-25 08:39 | XRay Report ---
Indication: ileus PROCEDURE: XR abdomen 2V: Encounter: Initial Comparison: September 24, 2017 Findings: Nasogastric tube remains in stable position. Continued minimal bowel gas in the abdomen. Surgical skin gera again seen. Bony structures are unremarkable. Lung bases are grossly clear. Impression: Minimal bowel gas. .
[2017-09-25] MEDS: AZITHROMYCIN IV 250 MG in NS 100 ML IV SCH (09:44)
--- NOTE | 2017-09-25 18:28 | Progress Note ---
DATE 09/25/2017 FINDINGS Mr. Cabral was seen this morning and this afternoon on rounds. He denied severe abdominal pain. States he did have a small BM. OBJECTIVE VITALS: Afebrile. Normotensive. Please refer to EMR. ABDOMEN: Soft, nontender. No evidence for guarding or rebound. LABORATORY/RADIOGRAPHIC EVALUATION The patient had a CBC today that was unremarkable. White count remains stable at 9.6. Radiographically he did have a KUB and upright today which did not reveal marked changes. There was a paucity of air noted. This may be the result of fluid-filled loops of bowel. ASSESSMENT 32-year-old gentleman status post limited right hemicolectomy secondary to phlegmonous mass involving pericecal region. Patient with development of postoperative ileus. PLAN Earlier today when I did see the patient this morning I had written to clamp his NG. He had tolerated his NG being clamped throughout the day. He did consume some clear liquids this afternoon and had not developed recurrent abdominal pain or nausea or vomiting. Will plan on keeping NG clamped throughout the evening. If he tolerates NG being clamped over 24 hours, will likely proceed with Gastrografin small bowel follow-through today. Overall I am pleased with the patient's progress. If we are not able to advance his diet in the near future, we may need to consider placement of a PICC line and initiation of hyperalimentation. MALINI
[2017-09-26] MEDS: NS 1,000 ML IV SCH ×3 (03:14→23:45)
[2017-09-26] MEDS ORDERED: BISACODYL 10 MG SUPPOSITORY RECTALLY ONE (08:03)
--- NOTE | 2017-09-26 08:09 | General Surgery Progress Note ---
Subjective Patient reports: no flatus Narrative: He did not sleep well last night, the NG is getting quite irritating in the throat and he is feeling a little more bloated. No flatus. He had a small liquid "quirt" of stool during the night. He states that he will occasionally feel movement in the lower abd and think there will be stool, but when he gets to the bathroom there are no results. Denies actual nausea. Has been taking clear liquids sparingly. NG has been clamped since yesterday and he is on clear liquids. I hooked NG to suction and there wasn't even enough out to fill the suction tubing, then clamped again. - Vital Signs Last Vital Signs Temp 98.6 F 09/25/17 23:18 Pulse 71 09/25/17 23:18 Resp 16 09/25/17 23:18 BP 125/76 09/25/17 23:18 Pulse Ox 97 09/25/17 23:18 - Laboratory Result Diagrams: 09/26/17 04:00 09/26/17 04:00 - Radiology KUB upright, report pending, but I can see a little air the bowel today. - Abnormal Exam Abdominal: hypoactive bowel sounds - Normal Exam General: awake, alert, oriented Cardiovascular: regular rhythm, regular rate Respiratory: clear bilaterally, no labored breathing Abdominal: soft, non-tender (lateral palpation), incision(s) (gera in tact) Psychiatric: normal affect ( but a little frustrated that the ileus is taking so long to resolve) Assessment and Plan (1) Postoperative ileus Current Visit: Yes Status: Acute (2) Status post right colon removal Current Visit: No Status: Acute Problem details: limited right hemicolectomy Plan: Ileus symptom continue. Continue Azithromycin. Try Dulcolax Supp this am. SBFT today per Dr. Kenny. He has been without nutrition for several days, if ileus does not resolve, we may need PICC and TPN. Hospital Course Summary Disclaimer: The visit summary below is not to be considered part of the above Progress Note.
--- NOTE | 2017-09-26 08:33 | XRay Report ---
Indication: Ileus PROCEDURE: XR abdomen 2V: Encounter: Initial Comparison: September 25, 2017 Findings: Nasogastric tube remains in stable position. Increasing bowel gas compared to the prior studies. No free air appreciated. Lung bases are clear. No abnormally dilated small bowel loops seen. There is scattered colonic gas now present throughout the abdomen and pelvis. Surgical skin gera. Impression: Increasing bowel gas probably representing an improving ileus. .
[2017-09-26] MEDS ORDERED: DIATRIZOATE MEGLUMINE/SOD. (66%/10%) 120ml SOLN ONE (08:47)
[2017-09-26] MEDS: AZITHROMYCIN IV 250 MG in NS 100 ML IV SCH (10:30)
--- NOTE | 2017-09-26 11:51 | XRay Report ---
Indication: Ileus PROCEDURE: XR small bowel follow through: Encounter: Initial Comparison: Radiographs from today Findings: Water-soluble contrast was administered followed by serial abdominal radiographs. Contrast progresses normally through mildly dilated proximal small bowel measuring up to 4.3 cm in diameter. Contrast reaches the colon by 1 hour and 30 minutes after administration and reaches the rectum by 2 hours after administration. Nasogastric tube remains in place. Impression: Normal intestinal transit time. .
--- NOTE | 2017-09-26 12:55 | General Surgery Progress Note ---
Subjective Patient reports: feels better, bowel movement Narrative: He reports several BM's since the SBFT, feeling better. - Vital Signs Last Vital Signs Temp 98.6 F 09/26/17 08:00 Pulse 64 09/26/17 08:00 Resp 16 09/26/17 08:00 BP 117/74 09/26/17 08:00 Pulse Ox 97 09/26/17 08:00 - Laboratory Result Diagrams: 09/26/17 04:00 09/26/17 04:00 - Normal Exam General: awake, alert Abdominal: soft Assessment and Plan (1) Postoperative ileus Current Visit: Yes Status: Acute (2) Status post right colon removal Current Visit: No Status: Acute Problem details: limited right hemicolectomy Plan: DC NG and start full liquids. Will consider advancing to regular this evening or for breakfast, pending how he tolerates fulls. Hospital Course Summary Disclaimer: The visit summary below is not to be considered part of the above Progress Note.
--- NOTE | 2017-09-26 16:20 | Progress Note ---
DATE 09/26/2017 FINDINGS Mr. Cabral denied significant abdominal pain this afternoon. He states that he has had several loose stools after his Gastrografin small bowel follow- through. He states he is feeling somewhat tired. OBJECTIVE VITALS: Afebrile. Normotensive. Please refer to EMR. ABDOMEN: Soft, nontender. LABORATORY/RADIOGRAPHIC EVALUATION The patient had a CBC today that was unremarkable. White count is 9.5. Hemoglobin is11.2. BMP without marked abnormalities. Small bowel follow- through was obtained today that did progress through the GI tract and into the rectum within a couple of hours. Small bowel follow-through was normal. ASSESSMENT 32-year-old gentleman status post limited right hemicolectomy secondary to phlegmonous mass involving pericecal region. Patient with development of postoperative ileus. Ileus at this point in time appears to have resolved. PLAN NG has been DC'd. Will advance diet as tolerated. Hopefully tomorrow the patient will be able to be discharged to home. MALINI
[2017-09-27 08:25] VITALS: RESP 14
--- NOTE | 2017-09-27 08:45 | General Surgery Progress Note ---
Subjective Patient reports: feels better, flatus, bowel movement (several) Narrative: He did not advance to regular diet last evening, wasn't feeling up to that much food. Today breakfast will be 1st "regular" meal. He had several more BM's and is belching. He states he finally slept well last night (without the NG tube). Denies abd pain, states abd feels soft to him, not bloated. ambulating and voiding without difficulty. - Vital Signs Last Vital Signs Temp 97.5 F 09/27/17 08:00 Pulse 62 09/27/17 08:00 Resp 14 09/27/17 08:00 BP 146/77 H 09/27/17 08:00 Pulse Ox 97 09/27/17 08:00 - Laboratory Result Diagrams: 09/27/17 03:59 09/27/17 03:59 - Normal Exam General: awake, alert, oriented Respiratory: equal bilaterally, no labored breathing Abdominal: BS normo active x4, soft, non-tender, incision(s) (gera in tact) Psychiatric: normal affect Assessment and Plan (1) Postoperative ileus Current Visit: Yes Status: Acute (2) Status post right colon removal Current Visit: No Status: Acute Problem details: limited right hemicolectomy Plan: Had severl more BM's, and states he slept well last night. Encouraged him to order regular breakfast, perhaps eggs, toast, etc. IV Fluids stopped. Stop Azithromycin. Will likely keep him through lunch and into the afternoon to see how he does with 2 regular meals. Hospital Course Summary Disclaimer: The visit summary below is not to be considered part of the above Progress Note. Hospital Course: 09/23 Admitted with Ileus type symptoms. KUB Bowel gas pattern appears nonobstructive radiographically. / KUB upright Relatively gasless abdomen probably representing fluid-filled bowel loops. Relatively gasless abdomen probably representing fluid-filled bowel loops. Azithromycin IV daily was initiated yesterday, he's had a few small liquid stools. NG should remain in place. He may have ice chips as any fluid will be suctioned out. Continue current care. / NG clamped and tolerating clear liquids without pain. If he tolerates NG being clamped over 24 hours, will likely proceed with Gastrografin small bowel follow-through today. If we are not able to advance his diet in the near future, we may need to consider placement of a PICC line and initiation of hyperalimentation. 09/26 Small Bowel Follow through: Water-soluble contrast was administered followed by serial abdominal radiographs. Contrast progresses normally through mildly dilated proximal small bowel measuring up to 4.3 cm in diameter. Contrast reaches the colon by 1 hour and 30 minutes after administration and reaches the rectum by 2 hours after administration. Nasogastric tube remains in place. Impression: Normal intestinal transit time. DC NG and start full liquids. Will consider advancing to regular this evening or for breakfast, pending how he tolerates fulls. 09/27 Had several more BM's, and states he slept well last night. Encouraged him to order regular breakfast, perhaps eggs, toast, etc. IV Fluids stopped. Stop Azithromycin. Will likely keep him through lunch and into the afternoon to see how he does with 2 regular meals.
--- NOTE | 2017-09-27 12:21 | Progress Note ---
DATE 09/27/2017 FINDINGS Mr. Cabral was seen on rounds this morning. He denied any significant abdominal pain. He continues to have some loose stools. He states that overall he is feeling significantly better. VITALS: Afebrile. Normotensive. Please refer to EMR. ABDOMEN: Soft, nontender. LABORATORY/RADIOGRAPH EVALUATION The patient had a CBC today and a BMP today that were unremarkable. ASSESSMENT 32-year-old gentleman status post limited right hemicolectomy secondary to phlegmonous mass involving pericecal region. Patient with development of postoperative ileus. Patient doing well. PLAN Will go ahead and advance diet as tolerated. If patient does tolerate a regular diet today he will be discharged this afternoon. I am pleased with the patient's progress. MTDD
--- NOTE | 2017-09-27 14:18 | Discharge Summary ---
Discharge Information Date of admission: 09/23/17 13:38 Anticipated date of discharge: 09/27/17 Attending Physician: Royer Kenny MD Primary care physician: Paul Clayton MD - Discharge Diagnosis (1) Postoperative ileus Status: Acute (2) Status post right colon removal Status: Acute - Procedures Procedures: none - Laboratory Labs: 09/27/17 03:59 09/27/17 03:59 - Radiology Radiology: Date of Exam: 09/23/17 Ordering Provider: Royer Kenny MD Type of Exam(s): XR abdomen 2V Reason for Exam(s): ileus vs small bowel obstruction EXAM: XR abdomen 2V DATE: 09/23/2017 8:07 AM Encounter: Subsequent INDICATION: ileus vs small bowel obstruction COMPARISON: Abdominal CT and acute abdominal series of the previous day Technique: Upright and supine AP abdominal radiographs were obtained. Findings: Midline surgical skin gera noted. Right lower quadrant surgical chain gera consistent with recent appendectomy. Non-obstructive bowel gas pattern. A few nonspecific air-fluid levels are seen on the upright radiograph. Paucity of colonic gas and stool. No intraperitoneal free air appreciated radiographically. No acute osseous abnormality identified. The visualized lung bases appear clear. Impression: Bowel gas pattern appears nonobstructive radiographically. Date of Exam: 09/24/17 Ordering Provider: Royer Kenny MD Type of Exam(s): XR abdomen 2V Reason for Exam(s): ileus Indication: ileus PROCEDURE: XR abdomen 2V: Encounter: Initial Comparison: September 23, 2017 Findings: Nasogastric tube tip is now directed distally in the region of the pylorus. No free air identified. Minimal bowel gas visible. No abnormally dilated gas-filled bowel loops appreciated. Bony structures are unremarkable. Impression: Relatively gasless abdomen probably representing fluid-filled bowel loops. Date of Exam: 09/26/17 Ordering Provider: Nory Varela APRN Type of Exam(s): XR small bowel follow through Reason for Exam(s): Ileus Indication: Ileus PROCEDURE: XR small bowel follow through: Encounter: Initial Comparison: Radiographs from today Findings: Water-soluble contrast was administered followed by serial abdominal radiographs. Contrast progresses normally through mildly dilated proximal small bowel measuring up to 4.3 cm in diameter. Contrast reaches the colon by 1 hour and 30 minutes after administration and reaches the rectum by 2 hours after administration. Nasogastric tube remains in place. Impression: Normal intestinal transit time. - History of Present Illness Chief complaint: Abd pain HPI: FINDINGS Mr. Cabral is a 32-year-old gentleman who was readmitted last evening through our emergency room facility as a result of an abnormal CT scan revealing evidence for an ileus. Last week Mr. Cabral underwent an attempted laparoscopic appendectomy secondary to his physical findings of localized right lower quadrant abdominal pain in conjunction with a CT scan revealing evidence for acute appendicitis with possible small perforation. At the time of surgery the patient was found to have a phlegmonous mass involving his pericecal region. He subsequently underwent a limited right hemicolectomy with resection of this phlegmonous mass. Fortunately, pathology did not return revealing any evidence for malignancy. On Saturday of last weekend the patient was tolerating a regular diet and was discharged to home. Unfortunately, the patient then began to develop some increasing abdominal discomfort yesterday, on Saturday. He presented to the emergency room earlier in the day and no significant abnormal radiographic or laboratory results were noted. The patient did not feel well, however, and stayed around the hospital for several hours after his dismissal from the ER. He then began to develop increasing abdominal pain and re-presented to the emergency room, at which time a CT scan was obtained that did reveal some dilatation of the small bowel suggestive of small bowel obstruction. Given his ongoing symptomatology and radiographic findings, the patient was admitted for further evaluation. This morning when I entered his room the patient was sleeping comfortably. The patient stated at the time of my entry into the room he was having no pain. Earlier this morning , however, he stated that he was having some crampy intermittent discomfort that was alleviated after receiving some Toradol. He currently denies any element of nausea. He has had no vomiting per his report. Place in hospital for fluids, pain control, and further evaluation. Hospital Course This is a general summary of the patient's hospital course. For more details refer to the complete medical record. Hospital course: 09/23 Admitted with Ileus type symptoms. KUB Bowel gas pattern appears nonobstructive radiographically. / KUB upright Relatively gasless abdomen probably representing fluid-filled bowel loops. Relatively gasless abdomen probably representing fluid-filled bowel loops. Azithromycin IV daily was initiated yesterday, he's had a few small liquid stools. NG should remain in place. He may have ice chips as any fluid will be suctioned out. Continue current care. 4/4 NG clamped and tolerating clear liquids without pain. If he tolerates NG being clamped over 24 hours, will likely proceed with Gastrografin small bowel follow-through today. If we are not able to advance his diet in the near future, we may need to consider placement of a PICC line and initiation of hyperalimentation. 4/5 Small Bowel Follow through: Water-soluble contrast was administered followed by serial abdominal radiographs. Contrast progresses normally through mildly dilated proximal small bowel measuring up to 4.3 cm in diameter. Contrast reaches the colon by 1 hour and 30 minutes after administration and reaches the rectum by 2 hours after administration. Nasogastric tube remains in place. Impression: Normal intestinal transit time. DC NG and start full liquids. Will consider advancing to regular this evening or for breakfast, pending how he tolerates fulls. 4/6 Had several more BM's, and states he slept well last night. Encouraged him to order regular breakfast, perhaps eggs, toast, etc. IV Fluids stopped. Stop Azithromycin. Will likely keep him through lunch and into the afternoon to see how he does with 2 regular meals. 4/6 tolerated breakfast and lunch without difficulty DC to home. see discharge instructions Time spent with patient: 25 - 35 minutes Resuscitation Status: Full Code Discharge Plan - Med Rec/Dispo Referrals/Follow Up: Royer Kenny MD [Physician] - 10/04/17 1:45 pm Prescriptions: Continue Hydrocodone/APAP 5/325 [[place] 5/325] 1 - 2 tab PO Q5H PRN #30 tab PRN Reason: Pain Magnesium Citrate 296 ml PO PRN PRN PRN Reason: Constipation Ondansetron [Zofran Odt] 1 tab SL Q6HR PRN #10 tab PRN Reason: Nausea Ibuprofen [Motrin] 1 tab PO Q6H PRN PRN Reason: Pain Amoxicillin/Potassium Clav [Augmentin 875-125 Tablet] 1 each PO BID #10 tab - Disposition 01 Discharged Home, Self-Care - Dismissal Complete Discharge Instructions are:: Complete
[2017-09-27 15:39] VITALS: BP 127/68; PULSE 70; TEMP 96.5; O2SAT 93
== END 2017-09-27 16:10 | disposition home or self-care (01) | DRG 390 ==
LOC: SRG 18:13 → ED 18:13 → SRG 20:05
PROVIDERS: ADMIT Surgery; ATTEND Surgery